=== PATIENT | female | born 1960 | race Two or more races ===

== ENCOUNTER 2020-07-22 12:21 | Outpatient (CLI) | payer OTHER | END 2020-07-22 12:32 | disposition home or self-care (01) | LOC: MRI 12:21 | PROVIDERS: ATTEND Internal Medicine Infectious Disease | DX: M33.19 Other dermatomyositis with other organ involvement (principal); L93.2 Other local lupus erythematosus | CPT/HCPCS: 73723; A9575; 73718 ==

== ENCOUNTER 2020-07-24 09:11 | Outpatient (CLI) | payer OTHER | END 2020-07-24 09:29 | disposition home or self-care (01) | LOC: NUCLEAR 09:11 | PROVIDERS: ATTEND Internal Medicine Infectious Disease | DX: I73.9 Peripheral vascular disease, unspecified (principal) ==

== ENCOUNTER 2020-07-25 08:54 | Outpatient (CLI) | payer OTHER | END 2020-07-25 09:05 | disposition home or self-care (01) | LOC: NUCLEAR 08:54 | PROVIDERS: ATTEND Internal Medicine Infectious Disease | DX: I87.2 Venous insufficiency (chronic) (peripheral) (principal) ==

== ENCOUNTER 2020-12-29 07:55 | Outpatient (CLI) | payer OTHER | END 2020-12-29 10:18 | disposition home or self-care (01) | LOC: NUCLEAR 07:55 | PROVIDERS: ATTEND Internal Medicine Rheumatology | DX: M05.69 Rheumatoid arthritis of multiple sites with involvement of other organs and systems (principal) | CPT/HCPCS: 78315; A9503 ==

== ENCOUNTER 2022-02-24 07:38 | Outpatient (CLI) | payer OTHER | END 2022-02-24 07:39 | disposition home or self-care (01) | LOC: NUCLEAR 07:38 | PROVIDERS: ATTEND Internal Medicine Rheumatology | DX: M05.79 Rheumatoid arthritis with rheumatoid factor of multiple sites without organ or systems involvement (principal) ==